=== PATIENT | female | born 1970 | race Caucasian/White ===

== ENCOUNTER 2024-06-04 03:58 | Emergency (ER) | payer MEDICARE, OTHER ==
[2024-06-04 05:04] LABS: BASOPHILS PERCENT AUTO 0.3 % (0.1-1.3); HEMATOCRIT 41.7 % (34.3-46.0); HEMOGLOBIN 14.4 g/dL (11.2-15.5); IMMATURE GRAN PERCENT AUTO 0.3 % (0.0-0.7); LYMPHOCYTES ABSOLUTE AUTO 0.76 K/uL (0.8-3.3); MEAN CORPUSCULAR HGB CONC 34.5 g/dL (31.6-35.5); MEAN CORPUSCULAR VOLUME 89.9 fL (81.4-99.0); MONOCYTES PERCENT AUTO 9.1 % (3.3-12.6); NEUTROPHILS ABSOLUTE AUTO 2.22 K/uL (1.0-7.6); NEUTROPHILS PERCENT AUTO 67.3 % (40.0-78.1); PLATELET COUNT,PLT 133 K/uL (130-375); RED BLOOD CELL COUNT 4.64 M/uL (3.77-5.24); WHITE BLOOD CELL COUNT,WBC 3.3 K/uL (3.2-11.0)
[2024-06-04] MEDS: Sodium Chloride 0.9% 1,000 ML IV SCH (05:05)
[2024-06-04 05:08] LABS: BASOPHILS ABSOLUTE AUTO 0.01 K/uL (0.00-0.10); IMMATURE GRAN ABSOLUTE AUTO 0.01 K/uL (0.00-0.23)
[2024-06-04 05:28] LABS: ANION GAP 10.5 mmol/L (5.0-14.0); C-REACTIVE PROTEIN 1.03 mg/dL (<0.50); CALCIUM 8.2 mg/dL (8.5-10.1); CREATININE 1.1 mg/dL (0.6-1.0); EST CRCL DRUG DOSING (CG) 54.1 mL/min; POTASSIUM,K 3.9 mmol/L (3.6-5.2)
[2024-06-04 05:29] LABS: LACTIC ACID 1.1 mmol/L (0.4-2.0)
[2024-06-04] MEDS: Prochlorperazine 10 MG/2 ML SDV IVPUSH ONE (06:25)
[2024-06-04] MEDS: Lactated Ringers 1,000 ML IV ONE (06:28)
== END 2024-06-04 08:28 | disposition home or self-care (01) ==
LOC: JP.ED 03:58
DX: R55 Syncope and collapse (principal); E86.0 Dehydration; Z90.49 Acquired absence of other specified parts of digestive tract; Z88.1 Allergy status to other antibiotic agents; Z79.899 Other long term (current) drug therapy
CPT/HCPCS: 36415; 70450; 70486; 80048; 83605; 83735; 84484; 85025; 86140; 93005; 93010; 96361; 96374; 99284; J0780; J7030; J7120

== ENCOUNTER 2025-02-02 11:52 | Emergency (ER) | payer MEDICARE, OTHER | END 2025-02-02 13:40 | disposition home or self-care (01) | LOC: JP.ED 11:52 | DX: H73.011 Bullous myringitis, right ear (principal); H60.501 Unspecified acute noninfective otitis externa, right ear; Z88.1 Allergy status to other antibiotic agents; Z91.010 Allergy to peanuts; Z91.048 Other nonmedicinal substance allergy status; Z91.0110 Allergy to milk products, unspecified; Z79.899 Other long term (current) drug therapy; Z90.49 Acquired absence of other specified parts of digestive tract | CPT/HCPCS: 99283 ==